=== PATIENT | male | born 1955 | race Caucasian/White ===

== ENCOUNTER 2016-10-08 15:00 | Outpatient (RCR) | payer MEDICARE, OTHER | END 2016-11-12 17:56 | disposition home or self-care (01) | LOC: PT 15:00 | DX: M48.02 Spinal stenosis, cervical region (principal); M62.81 Muscle weakness (generalized) | CPT/HCPCS: G8978-GP; G8979-GP ==

== ENCOUNTER → 2023-08-05 | Outpatient (CLI) | payer MEDICARE, OTHER ==
[2023-08-06 21:08] LABS: ANA SCREEN with REFLEX Negative (Negative)
[2023-08-11 05:37] LABS: ANTI-CYC CITRULLINATED PEPT AB 7 units (0-19)
== END ==
LOC: LAB 12:17
DX: R91.1 Solitary pulmonary nodule (principal)

== ENCOUNTER → 2023-10-01 | Outpatient (CLI) | payer MEDICARE, OTHER | LOC: RAD 08:00 | DX: Z86.711 Personal history of pulmonary embolism (principal); Z86.718 Personal history of other venous thrombosis and embolism ==